=== PATIENT | female | born 1995 | race Caucasian/White ===

== ENCOUNTER 2016-12-19 22:05 | Emergency (ER) | payer BC ==
[~2016-12-19] VITALS: Ht 162.6 cm; Wt 66.0 kg
[2016-12-19 22:17] VITALS: BP 118/71; PULSE 87; RESP 14; TEMP 98.1; O2SAT 98
[2016-12-19] MEDS ORDERED: NEUR800T PO (22:30)
[2016-12-19] MEDS ORDERED: BUPR8SUB SL (22:30)
[2016-12-19] MEDS ORDERED: GABAPENTIN 100 MG CAP PO ONE (22:45)
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
[2016-12-19] MEDS ORDERED: GABAPENTIN 400 MG CAP PO ONE (23:00)
[2016-12-19] MEDS ORDERED: TYLE325T PO (23:13)
== END 2016-12-19 23:44 | disposition home or self-care (01) ==
LOC: EDBD 22:05 → PHED 22:05
DX: M54.5 Low back pain (principal); G89.29 Other chronic pain
CPT/HCPCS: 84703; 99283